=== PATIENT | female | born 1980 | race Caucasian/White ===

== ENCOUNTER 2017-02-11 03:48 | Emergency (ER) | payer OTHER ==
[~2017-02-11] VITALS: Ht 162.6 cm; Wt 70.5 kg
[2017-02-11 04:05] VITALS: BP 125/85; PULSE 66; RESP 17; O2SAT 97
[2017-02-11 05:14] LABS: BASOPHILS % (AUTO) 0.2 % (0-3); EOSINOPHILS % (AUTO) 3.1 % (0-5); Mean Corpuscular Hemoglobin 28.6 pg (27.0-35.0); Mean Corpuscular Volume 85.5 fL (81-100); NEUTROPHILS % (AUTO) 57.7 % (40-74); Platelet Count 256 bil/L (150-400)
[2017-02-11 05:27] LABS: APPEARANCE,URINE HAZY (CLEAR,HAZY); COLOR,URINE DARK YELLOW (YELLOW); OCCULT BLOOD,URINE NEGATIVE (NEGATIVE); PH,URINE 5.5 (5.0-8.0)
[2017-02-11 05:53] LABS: INR 0.94 ratio
--- NOTE | 2017-02-11 06:31 | ED.REPORT ---
HPI-Abd Pain F Under 40 Date of Service Feb 11, 2017 ED Provider: Jorge Alberto Pat MD A 36 year old female with a history or recurrent UTI's presents to the ED complaining of abdominal cramping that began 3 days ago. Associated symptoms include intermittent dysuria, constipation, nausea and one episode of emesis. Patient reports that her current symptoms feel identical to her bladder infection 4 months ago. Her pain comes in waxes and wanes. Patient reports that she is often unable to urinate frequently while she is at work. She denies any vomiting, vaginal discharge, back pain, diarrhea, fever or chills. Nursing Notes Stated Complaint: STOMACH PAIN Chief Complaint: Female Abdominal Pain Nursing Notes Reviewed: Yes Allergies: Coded Allergies: No Known Drug Allergies (Unverified Allergy, Unknown, 02/17/15) Uncoded Allergies: ADHESIVE TAPES (Allergy, Unknown, 02/12/15) Scheduled PRN Polyethylene Glycol 3350 (Miralax) 17 Gm Powd.pack 17 GM PO HS PRN PRN For Constipation General Time Seen by MD: 06:28 Chief Complaint Abdominal pain Hx Obtained From: Patient Arrived By: Walk-in Sudden in Onset?: No Onset Occurred: 3 days ago Symptom Duration: Since onset Progression since Onset: Unchanged Location: : Abdomen lower Quality: Cramping Radiation: : Does not radiate Severity: Current: Moderate Severity: Maximum: Moderate Associated with: Reports: Constipation, Dysuria, Nausea, Vomiting, Denies: Back pain, Diarrhea, Fever, Hematuria, Vaginal bleeding, Vaginal discharge Pertinent Negative: Pt denies other symptoms Recent Healthcare: No recent doctor visit, No recent hospitalization Past Medical History Past Medical History Recurrent UTI; otherwise healthy Past Surgical History Breast reduction Reports: , Hysterectomy Smoking History Never Smoker Social History Alcohol Use: Denies alcohol use Drug Use: Denies drug use Other Social History: Local resident Ambulatory Status Independent Review of Systems Constitutional: Denies: Chills, Fever GI: Reports: Abdominal pain, Constipation, Nausea, Vomiting (1 episode), Denies: Diarrhea Female: Reports: Dysuria, Denies: Hematuria, , Vaginal bleeding - abnl, Vaginal discharge Musculoskeletal: Denies: Back pain Complete sys rev & neg: except as marked. Physical Exam Initial Vital Signs Vital Signs (First) Date Time Temp Pulse Resp B/P Pulse Ox O2 Delivery O2 Flow Rate FiO2 02/11/17 04:05 37.1 66 17 125/85 97 Room Air Initial VS: Reviewed Head / Eyes: Atraumatic, Normocephalic, PERRL Neck: Supple, Non-tender, Full range of motion Extremities: Vascular intact, Neuro intact, No swelling, No tenderness Skin: Warm, Dry, No cyanosis Neurologic: Alert, Oriented, Nonfocal Psychiatric: Mood/affect normal, Behavior normal, Normal thought content General/Constitutional: Awake, Alert, No acute distress, Well appearing, Well developed Respiratory / Chest: Atraumatic, Breath sounds NL, Breath sounds = bilat, No respiratory distress Cardiovascular: Heart rate NL, Regular rhythm, Heart sounds NL, No murmurs Abdomen: Atraumatic, Soft, Non-tender Tenderness/Guarding/Rebound: Positive: Tender LLQ..., Tender LUQ... Back: Atraumatic, Inspection NL, No CVA tenderness Interpretation & Diagnostics Lab Results Interpretation Result Diagram: 02/11/17 0458 02/11/17 0458 Test 02/11/17 04:35 02/11/17 04:58 02/11/17 05:30 Urine Color Dark yellow (YELLOW) Urine Appearance Hazy (CLEAR,HAZY) Urine pH 5.5 (5.0-8.0) Urine Specific [place] 1.035 (1.003-1.035) Urine Protein Tracemg/dL (NEG,TRACE) Urine Glucose (UA) Negativemg/dL (NEGATIVE) Urine Ketones Negativemg/dL (NEGATIVE) Urine Occult Blood Negative (NEGATIVE) Urine Nitrite Negative (NEGATIVE) Urine Bilirubin Negative (NEGATIVE) Urine Urobilinogen 1.0mg/dL (NORMAL) Urine Leukocyte Esterase Negative (NEGATIVE) Urine RBC 0-2/hpf (0-2) Urine WBC 0-5/hpf (0-5) Urine Epithelial Cells Few/hpf (NONE-MOD) Urine Crystals None seen (NONE SEEN) Urine Bacteria Few/hpf (NONE-FEW) Urine Hyaline Casts None/lpf (NONE) Urine Granular Casts None seen (NONE SEEN) Urine Waxy Casts None seen (NONE SEEN) Urine Red Blood Cell Casts None seen (NONE SEEN) Urine White Blood Cell Casts None seen (NONE SEEN) Urine Mucus Present (None Seen) Urine Trichomonas None seen (NONE SEEN) Urine Yeast None (NONE SEEN) Urinalysis Comment None Urine Culture Reflexed Not indicated White Blood Count 8.8th/mm3 (3.8-10.1) Red Blood Count 5.11mil/mm3 (3.90-5.20) Hemoglobin 14.6g/dL (12.0-15.6) Hematocrit 43.7% (35.0-46.0) Mean Corpuscular Volume 85.5fL (81-100) Mean Corpuscular Hemoglobin 28.6pg (27.0-35.0) Mean Corpuscular Hemoglobin Concent 33.4% (32.0-37.0) Red Cell Distribution Width 12.6% (12.3-15.4) Platelet Count 256bil/L (150-400) Neutrophils (%) (Auto) 57.7% (40-74) Lymphocytes (%) (Auto) 29.8% (14-46) Monocytes (%) (Auto) 9.0% (4-12) Eosinophils (%) (Auto) 3.1% (0-5) Basophils (%) (Auto) 0.2% (0-3) Sodium Level 141mEq/L (134-144) Potassium Level 4.0mEq/L (3.5-5.2) Chloride Level 106mEq/L (97-108) Carbon Dioxide Level 18mmol/L (18-29) Blood Urea Nitrogen 13mg/dL (6-20) Creatinine 0.83mg/dL (0.57-1.00) Estimat Glomerular Filtration Rate 111mL/min (>59) Glucose Level 116mg/dL (60-99) Calcium Level 9.3mg/dL (8.5-10.1) Magnesium Level 2.0mg/dL (1.6-2.6) Total Bilirubin 0.2mg/dL (0.0-1.2) Aspartate Amino Transf (AST/SGOT) 20U/L (0-50) Alanine Aminotransferase (ALT/SGPT) 20U/L (0-32) Alkaline Phosphatase 52U/L (25-150) Total Protein 6.8g/dL (6.4-8.4) Albumin 3.9g/dL (3.4-5.0) Lipase 45U/L (13-60) Prothrombin Time 10.0sec (8.1-12.5) Prothromb Time International Ratio 0.94ratio Hold Dean Top Tube Received (Received) Re-Eval/Medical Decision Med Decision/Clinical Course Med Decision/Clinical Course: 36-year-old female history of recurrent UTIs presenting with lower abdominal cramping times several days. No pelvic symptoms. Her urine is negative for infection. Her labs are unremarkable. Bowel signs are stable. She has mild lower abdominal tenderness no regular quadrant tenderness. Reports history of constipation. She will be treated for constipation. Her abdomen is benign. She is to return if she has any new or worsening abdominal pain. Re-Evaluation/Progress : Time of Eval: 06:42 Patient Status: Condition improved Re-Evaluation/Progress Note: Patient is rechecked. She is informed of her results and diagnosis. All questions about the intended treatment plan are addressed. She understands and agrees with the plan. Counseled Regarding: Diagnosis, Lab results, Need for follow-up Discharge & Departure Primary Impression: Abdominal pain Abdominal location: generalized Qualified Code: R10.84 - Generalized abdominal pain Additional Impression: Constipation Constipation type: unspecified constipation type Qualified Code: K59.00 - Constipation, unspecified Disposition: Home Discharge Condition All VS Reviewed: Yes Condition: Improved Patient Instructions: Acute Abdominal Pain (ED) Additional Instructions: Thank you for trusting us with your care this morning. Your emergency department results are all reassuring that there is no dangerous cause for concern at this time and your lab work did not reveal any evidence of a urinary tract infection. Please take ibuprofen or Tylenol as directed for pain. Take MiraLax to help relieve your constipation. Schedule a follow up appointment with your primary care physician tomorrow for a recheck. Please return to the emergency department if you begin to develop any new or worsening conditions including any high fevers, chills, blood in your urine, worsening pain, right lower quadrant pain, uncontrollable vomiting, weakness or lightheadedness. Referrals: Amita Florence (PCP) Cathy Attestation Portions of this note were transcribed by Elle Webb. I, Dr. Pat personally performed the history, physical exam and medical decision-making; I reviewed and confirmed the accuracy of the information in the transcribed note. Signed by: Cathy Nuñez, 02/11/17 0645. copies to: Amita Florence Ben M MD Feb 11, 2017 06:31 ELLE WEBB Feb 11, 2017 06:39
[2017-02-11] MEDS ORDERED: POLY17PO6 PO (06:38)
[2017-02-11 06:49] VITALS: BP 123/79; PULSE 63; RESP 16; O2SAT 95
== END 2017-02-11 06:47 | disposition home or self-care (01) ==
LOC: SED 03:48
DX: K59.00 Constipation, unspecified (principal); R10.84 Generalized abdominal pain; R11.2 Nausea with vomiting, unspecified

== ENCOUNTER 2017-03-29 03:09 | Emergency (ER) | payer OTHER ==
[~2017-03-29] VITALS: Ht 165.1 cm; Wt 86.4 kg
[~2017-03-29 03:09] MED LIST: POLY17PO6 PO
[2017-03-29 03:18] VITALS: BP 123/79; PULSE 85; RESP 16; O2SAT 97
--- NOTE | 2017-03-29 03:49 | ED.REPORT ---
HPI-Abd Pain F Under 40 Date of Service Mar 29, 2017 ED Provider: Liang Jacques MD A 36 year old female with no pertinent medical history presents to the ED complaining of vomiting. The pt ate oysters two days ago and began experiencing abdominal pain and diarrhea an hour later. She began experiencing nausea and vomiting several hours later. These symptoms have persisted since despite the use of antidiarrheals and Pepto Bismol. Nursing Notes Stated Complaint: VOMITING,DIARRHEA Chief Complaint: Female Abdominal Pain Nursing Notes Reviewed: Yes Allergies: Coded Allergies: No Known Drug Allergies (Unverified Allergy, Unknown, 02/17/15) Uncoded Allergies: ADHESIVE TAPES (Allergy, Unknown, 02/12/15) Scheduled PRN Ondansetron ODT (Ondansetron ODT) 8 Mg Tab.rapdis 8 MG PO QID PRN PRN For Nausea Polyethylene Glycol 3350 (Miralax) 17 Gm Powd.pack 17 GM PO HS PRN PRN For Constipation General Time Seen by MD: 03:47 Chief Complaint Other (Vomiting) Hx Obtained From: Patient Arrived By: Walk-in Sudden in Onset?: No Onset Occurred: 2 days ago Symptom Duration: Since onset Recent Healthcare: Recent doctor visit Similar Sx Previous: No Past Medical History Past Medical History Recurrent UTI; otherwise healthy Past Surgical History Breast reduction Reports: , Hysterectomy Smoking History Never Smoker Social History Alcohol Use: Denies alcohol use Drug Use: Denies drug use Other Social History: Local resident Ambulatory Status Independent Review of Systems Respiratory: Denies: Non-productive cough, Shortness of breath Cardiovascular: Denies: Chest pain GI: Reports: Abdominal pain, Diarrhea, Nausea, Vomiting Musculoskeletal: Denies: Back pain, Neck pain Complete sys rev & neg: except as marked. Physical Exam Initial Vital Signs Vital Signs (First) Date Time Temp Pulse Resp B/P Pulse Ox O2 Delivery O2 Flow Rate FiO2 03/29/17 03:18 37.1 85 16 123/79 97 Room Air Initial VS: Reviewed General/Constitutional: Awake, Alert Respiratory / Chest: Atraumatic, Breath sounds NL, Breath sounds = bilat, No respiratory distress Cardiovascular: Heart rate NL, Regular rhythm, Heart sounds NL Abdomen: Atraumatic, Soft, Non-tender Bowel Sounds / Distention: Positive: Bowel sounds hyperactive Back: Atraumatic, Full range of motion Head / Eyes: Atraumatic, Normocephalic, PERRL, EOMI ENT: Atraumatic, Airway patent Mouth: Positive: Mucous membranes dry (mild) Skin: Atraumatic, Color NL, No rash, Warm, Dry Neurologic: Oriented X3, Speech NL, No motor deficits, No sensory deficits Neck: Atraumatic, Supple, Full range of motion Upper Extremity / MS: Atraumatic, Full range of motion Lower Extremity / Pelvis / MS: Atraumatic, Full range of motion Psychiatric: Affect NL, Mood NL Interpretation & Diagnostics Lab Results Interpretation Result Diagram: 03/29/17 0400 03/29/17 0400 Test 03/29/17 04:00 03/29/17 04:12 White Blood Count 7.9th/mm3 (3.8-10.1) Red Blood Count 4.60mil/mm3 (3.90-5.20) Hemoglobin 13.6g/dL (12.0-15.6) Hematocrit 40.1% (35.0-46.0) Mean Corpuscular Volume 87.2fL (81-100) Mean Corpuscular Hemoglobin 29.6pg (27.0-35.0) Mean Corpuscular Hemoglobin Concent 33.9% (32.0-37.0) Red Cell Distribution Width 12.6% (12.3-15.4) Platelet Count 203bil/L (150-400) Neutrophils (%) (Auto) 72.6% (40-74) Lymphocytes (%) (Auto) 14.7% (14-46) Monocytes (%) (Auto) 10.9% (4-12) Eosinophils (%) (Auto) 1.4% (0-5) Basophils (%) (Auto) 0.1% (0-3) Sodium Level 140mEq/L (134-144) Potassium Level 3.9mEq/L (3.5-5.2) Chloride Level 109mEq/L (97-108) Carbon Dioxide Level 19mmol/L (18-29) Blood Urea Nitrogen 12mg/dL (6-20) Creatinine 0.78mg/dL (0.57-1.00) Estimat Glomerular Filtration Rate 119mL/min (>59) Glucose Level 111mg/dL (60-99) Calcium Level 7.9mg/dL (8.5-10.1) Magnesium Level 1.9mg/dL (1.6-2.6) Total Bilirubin 0.4mg/dL (0.0-1.2) Aspartate Amino Transf (AST/SGOT) 22U/L (0-50) Alanine Aminotransferase (ALT/SGPT) 24U/L (0-32) Alkaline Phosphatase 45U/L (25-150) Total Protein 6.1g/dL (6.4-8.4) Albumin 3.5g/dL (3.4-5.0) Lipase 35U/L (13-60) Hold Dean Top Tube Received (Received) Urine Color Yellow (YELLOW) Urine Appearance Clear (CLEAR,HAZY) Urine pH 5.5 (5.0-8.0) Urine Specific [place] 1.015 (1.003-1.035) Urine Protein Negativemg/dL (NEG,TRACE) Urine Glucose (UA) Negativemg/dL (NEGATIVE) Urine Ketones Negativemg/dL (NEGATIVE) Urine Occult Blood Negative (NEGATIVE) Urine Nitrite Negative (NEGATIVE) Urine Bilirubin Negative (NEGATIVE) Urine Urobilinogen 1.0mg/dL (NORMAL) Urine Leukocyte Esterase Negative (NEGATIVE) Urine RBC 0-2/hpf (0-2) Urine WBC 0-5/hpf (0-5) Urine Epithelial Cells Occasional/hpf (NONE-MOD) Urine Crystals None seen (NONE SEEN) Urine Bacteria None/hpf (NONE-FEW) Urine Hyaline Casts None/lpf (NONE) Urine Granular Casts None seen (NONE SEEN) Urine Waxy Casts None seen (NONE SEEN) Urine Red Blood Cell Casts None seen (NONE SEEN) Urine White Blood Cell Casts None seen (NONE SEEN) Urine Mucus None seen (None Seen) Urine Trichomonas None seen (NONE SEEN) Urine Yeast None (NONE SEEN) Urinalysis Comment None Urine Culture Reflexed Not indicated Re-Eval/Medical Decision Med Decision/Clinical Course Med Decision/Clinical Course: 36-year-old starting the fourth day of gastroenteritis symptoms with nausea vomiting and diarrhea. She attributes this to oysters she consumed, but she developed symptoms within an hour or so of consuming them. That would be consistent with a preformed toxin, or potentially a vibrio infection. However, equally likely as a routine gastroenteritis with viral etiology. Stool was obtained and is submitted for PCR. Hydrated here with 3 L of fluid and improved. Zofran for nausea. Pepto-Bismol for symptom control. Discouraged the use of other antidiarrheals. Follow-up with PCP today. PCR results available after noon today. Source of Hx: Old records Re-Evaluation/Progress : Time of Eval: 04:54 Patient Status: Condition improved Re-Evaluation/Progress Note: Pt rechecked, who is comfortable. The diagnosis and plan for discharge are discussed. The pt understands and agrees with the plan. All questions are addressed at this time. Counseled Regarding: Diagnosis, Lab results, Need for follow-up, When/why to return to ED Discharge & Departure Primary Impression: Gastroenteritis Disposition: Home Discharge Condition All VS Reviewed: Yes Condition: Stable Patient Instructions: Gastroenteritis (ED) Additional Instructions: We have no specific evidence of a foodborne toxin as a source of your symptoms. The fact this is lasting this long is actually more suggestive of an infectious process, possibly foodborne but more likely not related to the restaurant. The stool submitted will be available midday tomorrow, and may give us a good idea of the particular pathogen involved. If a change in therapy is required, we will contact you. Your doctor will also have access to the lab results tomorrow. For now, begin Zofran up to four times daily to control your nausea. We do not attempt to suppress diarrhea, because prolonged contact with toxic materials can prolong the disease. Continue Pepto-Bismol at maximal lable directions. Drink plenty of clear fluids, particularly collection White replacement solutions such as Gatorade Powerade or Pedialyte. Return if you develop bleeding high fever or other new symptoms of concern Referrals: Amita Florence (PCP) Scribe Attestation Portions of this note were transcribed by Kg Mclean. I, Dr. Jacques personally performed the history, physical exam and medical decision-making; I reviewed and confirmed the accuracy of the information in the transcribed note. copies to: Amita Florence Christopher W MD Mar 29, 2017 03:49 KG MCLEAN Mar 29, 2017 03:56
[2017-03-29] MEDS: 0.9% Sodium Chloride 1,000 ML IV SCH ×2 (03:58→04:15)
[2017-03-29] MEDS ORDERED: Ondansetron 2 mg/mL 2 mL Inj IVPUSH ONE (04:00)
[2017-03-29 04:06] LABS: BASOPHILS % (AUTO) 0.1 % (0-3); EOSINOPHILS % (AUTO) 1.4 % (0-5); MONOCYTES % (AUTO) 10.9 % (4-12); Mean Corpuscular Hemoglobin 29.6 pg (27.0-35.0); Mean Corpuscular Volume 87.2 fL (81-100); NEUTROPHILS % (AUTO) 72.6 % (40-74); Platelet Count 203 bil/L (150-400)
[2017-03-29 04:25] LABS: APPEARANCE,URINE CLEAR (CLEAR,HAZY); COLOR,URINE YELLOW (YELLOW); OCCULT BLOOD,URINE NEGATIVE (NEGATIVE); PH,URINE 5.5 (5.0-8.0)
[2017-03-29 04:36] LABS: Magnesium 1.9 mg/dL (1.6-2.6)
[2017-03-29] MEDS ORDERED: ONDA8TAB10 PO (04:52)
[2017-03-29 05:10] VITALS: BP 101/52; PULSE 73; RESP 14; O2SAT 100
== END 2017-03-29 05:13 | disposition home or self-care (01) ==
LOC: SED 03:09
DX: K52.9 Noninfective gastroenteritis and colitis, unspecified (principal); Z87.440 Personal history of urinary (tract) infections
CPT/HCPCS: 36415; 80053; 81000; 83690; 83735; 85025; 87507; 96361; 96374; 99285; J2405; J7030